=== PATIENT | female | born 1970 | race Caucasian/White ===

== ENCOUNTER 2020-12-04 04:38 | Day surgery (SDC) | payer OTHER ==
[2020-12-03 16:02] VITALS: BMI 21.8
[2020-12-04] MEDS ORDERED: LIDOCAINE HCL 1%, 10 MG/ML (20ML VIAL) ONE (09:45)
[2020-12-04] MEDS ORDERED: PROPOFOL 20 ML ONE ×2 (11:10→11:58)
[2020-12-04] MEDS ORDERED: MIDAZOLAM HCL 2 MG/2 ML SINGLE DOSE VIAL ONE (11:10)
[2020-12-04] MEDS ORDERED: LIDOCAINE HCL/PF 2% SDV 5ML VIAL ONE (11:12)
[2020-12-04] MEDS ORDERED: DEXAMETHASONE SOD PHOSPHATE 4 MG/1 ML VIAL ONE (11:27)
[2020-12-04] MEDS ORDERED: ONDANSETRON 4 MG/2 ML VIAL IVPUSH PRN (11:34)
[2020-12-04] MEDS ORDERED: oxyCODONE HCL 5 MG TABLET PO PRN (11:34)
[2020-12-04] MEDS ORDERED: LACTATED RINGERS SOLUTION 1,000 ML IV SCH (11:45)
[2020-12-04] MEDS ORDERED: ceFAZolin SODIUM 1 GM VIAL IVPB ONE (11:47)
[2020-12-04] MEDS ORDERED: LIDOCAINE HCL 1%, 10 MG/ML (20ML VIAL) INF ONE ×2 (11:51)
[2020-12-04] MEDS ORDERED: KETOROLAC TROMETHAMINE 30 MG/1 ML VIAL ONE (12:09)
[2020-12-04 13:39] VITALS: PULSE 61
[2020-12-04 14:37] VITALS: BP 138/86; TEMP 97.7
== END 2020-12-04 14:25 | disposition home or self-care (01) ==
LOC: JASU-SURG 04:38
PROVIDERS: ATTEND Surgery
PROC: 0HBU0ZZ Excision of Left Breast, Open Approach (ICD-10-PCS; principal; 2020-12-04 11:20)
DX: D05.12 Intraductal carcinoma in situ of left breast (principal)
CPT/HCPCS: 19281; 76098-TC-FY; 88307-TC; 88341-TC; 88342-TC; 94760

== ENCOUNTER 2021-01-01 04:50 | Inpatient (IN) | payer OTHER ==
[2020-12-28 16:10] VITALS: BMI 21.8
[2021-01-01] MEDS ORDERED: ISOSULFAN BLUE 50 MG/5 ML VIAL SQ ONE (09:38)
[2021-01-01] MEDS ORDERED: LIDOCAINE HCL/PF 2% SDV 5ML VIAL ONE (11:42)
[2021-01-01] MEDS ORDERED: DEXAMETHASONE SOD PHOSPHATE 4 MG/1 ML VIAL ONE (11:42)
[2021-01-01] MEDS ORDERED: MIDAZOLAM HCL 2 MG/2 ML SINGLE DOSE VIAL ONE (11:43)
[2021-01-01] MEDS ORDERED: PROPOFOL 20 ML ONE (11:43)
[2021-01-01] MEDS ORDERED: ceFAZolin SODIUM 1 GM VIAL IVPB ONE (11:55)
[2021-01-01] MEDS ORDERED: ceFAZolin SODIUM 1 GM VIAL ONE (11:57)
[2021-01-01] MEDS ORDERED: oxyCODONE HCL 5 MG TABLET PO PRN ×2 (12:45)
[2021-01-01] MEDS ORDERED: LACTATED RINGERS SOLUTION 1,000 ML IV SCH (12:45)
[2021-01-01] MEDS ORDERED: ONDANSETRON 4 MG/2 ML VIAL IVPUSH PRN (12:45)
[2021-01-01] MEDS ORDERED: ACETAMINOPHEN 500 MG TABLET (FP) PO PRN (13:36)
[2021-01-01] MEDS ORDERED: ONDANSETRON 4 MG/2 ML VIAL IVPB PRN (13:36)
[2021-01-01] MEDS ORDERED: ALPRAZolam 1 MG TABLET PO ONE (13:36)
[2021-01-01] MEDS ORDERED: MEPERIDINE HCL 25 MG/ML VIAL IM PRN (13:37)
[2021-01-01] MEDS: LACTATED RINGERS SOLUTION 1,000 ML/1,000 ML INFUS.BAG IV SCH (15:30)
[2021-01-01] MEDS: CEFAZOLIN 1 GM/D5W 1 GM/50 ML BAG IVPB SCH (17:39)
[2021-01-02] MEDS: CEFAZOLIN 1 GM/D5W 1 GM/50 ML BAG IVPB SCH ×2 (02:58→09:37)
[2021-01-02] MEDS: LACTATED RINGERS SOLUTION 1,000 ML/1,000 ML INFUS.BAG IV SCH (06:15)
[2021-01-02 08:06] VITALS: BP 110/69; PULSE 69; TEMP 98.3
== END 2021-01-02 14:50 | disposition home or self-care (01) | DRG 362 ==
LOC: J2C 04:50 → EDSTATUS 13:00 → J6S 16:11
PROVIDERS: ADMIT Surgery; ATTEND Surgery
PROC: 0HTV0ZZ Resection of Bilateral Breast, Open Approach (ICD-10-PCS; principal; 2021-01-01 12:08)
PROC: 07B60ZX Excision of Left Axillary Lymphatic, Open Approach, Diagnostic (ICD-10-PCS; 2021-01-01 12:08)
DX: D05.11 Intraductal carcinoma in situ of right breast (principal)
CPT/HCPCS: 78195-TC; 94760; A9541